=== PATIENT | female | born 1935 | race Caucasian/White ===

== ENCOUNTER 2017-05-31 11:02 | Emergency (ER) | payer MEDICARE, OTHER, SELFPAY ==
[2017-05-31 11:03] VITALS: BP 199/89; PULSE 62; RESP 18; TEMP 36.6; O2SAT 98; BMI 22.3
[2017-05-31 11:14] VITALS: BP 201/107; PULSE 72; RESP 14; TEMP 36.6; O2SAT 99
--- NOTE | 2017-05-31 11:15 | CT_ITS ---
STUDY: CT BRAIN WITHOUT CONTRAST REASON FOR EXAM: Female, 81 years old. Dizziness, hypertension RADIATION DOSAGE (If Supplied By Facility): CTDIvol = ( 44.99 ) mGy, DLP = ( 779.24 ) mGycm TECHNIQUE: Transaxial CT imaging of the brain was performed without administration of intravenous contrast material. Sagittal and coronal reconstructed images are provided and reviewed. Individualized dose optimization techniques were used for this CT. COMPARISON: None. FINDINGS: Vascular calcifications are seen. Normal calvarium. Normal size ventricles and extra-axial spaces for the patient's age. Normal white matter tracts of the cerebral hemispheres. Normal basal ganglia and thalami. Normal brainstem. Normal cerebellum. There is no intracranial hemorrhage. There are no findings of an acute ischemic infarction. Normal visualized paranasal sinuses. CT/Brain/Head without Contrast IMPRESSION: Normal unenhanced CT scan of the brain. Electronically Signed: Vasyl Vargas DO at 12:32 EST Tel , Service support ,
--- NOTE | 2017-05-31 11:15 | EKG12_ITS ---
Test Reason : DIZZINESS Blood Pressure : / mmHG Vent. Rate : 062 BPM Atrial Rate : 062 BPM P-R Int : 174 ms QRS Dur : 124 ms QT Int : 440 ms P-R-T Axes : 067 -32 050 degrees QTc Int : 446 ms Sinus rhythm with Premature atrial complexes Left axis deviation Left bundle branch block Abnormal ECG Confirmed by BRITTANY WATTS, LEIF ([id number]), editorial clerk MARIA C PERDOMO ([id number] on 06/05/2017 3:57:25 PM Referred By: HARRIETT Confirmed By:LEIF SOTO MD
--- NOTE | 2017-05-31 11:15 | RAD_ITS ---
STUDY: X-RAY CHEST REASON FOR EXAM: Female, 81 years old. Shortness of breath. TECHNIQUE: Single AP portable view of the chest. COMPARISON: None. FINDINGS: EKG electrodes are seen. Hyperinflation. No acute abnormality is seen. There is no demonstrated pleural abnormality. There is mild cardiac enlargement. Normal mediastinum and my. Normal visualized pulmonary arteries. There is atherosclerotic calcification of the aortic arch with tortuosity. There is a mild dextroscoliosis of the thoracic spine. Normal visualized ribs, clavicles, and shoulders. There is no demonstrated abnormality of the visualized soft tissue structures of the upper abdomen. RAD/Chest 1 View (Portable) IMPRESSION: Hyperinflation. The lungs are clear. Electronically Signed: Avelino Edwards MD at 12:16 EST Tel [phone], Service support ,
--- NOTE | 2017-05-31 11:19 | ED.DCSUM_ITS ---
- ER Visit Summary Date of Service: 05/31/17 Chief Complaint: Elevated blood pressure History of Present Illness: The patient is a 81 F with elevated blood pressure, dizziness, nausea. She states the symptoms started earlier today. She was seen by a sleep doctor today for insomnia. When her blood pressure was elevated they sent her to the ED for further evaluation. She denies chest pain or shortness of breath. She complains of headache. She states she has had similar headaches in the past. She denies vision changes. She denies vertigo. Physical Examination: Vitals are stable. Patient is afebrile. Alert no acute distress. HEENT exam is unremarkable. Neck is supple. No meningismus Lungs are clear and equal bilaterally. Heart is regular rate and rhythm. Abdomen is soft nontender nondistended. Extremities are unremarkable. Skin is warm and dry. No focal neurologic deficit. NIH 0 Remainder of exam is unremarkable. Emergency Department Course and Treatment: Patient was given hydralazine IV. CBC, chemistries unremarkable other than BUN 27. Orthostatics are negative. EKG is sinus with a left bundle branch block rate is 62. There is no old for comparison but patient states that she does have a known left bundle branch block. Chest x-ray shows hyperinflation. CT brain shows no acute process. She was given Zofran. She is feeling improved and is requesting to go home. Her repeat blood pressure is 161/90. Patient states that she was previously taking blood pressure medication 6 months ago and was taken off by her primary care physician. She has a new primary care physician and has an appointment next week. She is advised to record her blood pressures at home and take this with her to PCP visit. Advised signs and symptoms for which to return to ED. Disposition: Discharge home Impression: Hypertension This note was generated with [employer] dictation software. It may contain incorrect words, spelling, and punctuation that were not noted in review of the chart prior to signing ED Disposition - Plan for ED Patient: Chief Complaint: Dizziness
[2017-05-31 11:20] VITALS: BP 170/88; BP 175/82; BP 185/87; PULSE 64; PULSE 70; PULSE 72
--- NOTE | 2017-05-31 11:20 | NURSING ---
NO OLD EKGS
[2017-05-31] MEDS: Ondansetron 4 MG/2 ML Vial IV (11:41)
[2017-05-31 11:55] LABS: Absolute Lymphocyte Count 2.23 X10^3/ul (0.83-4.51); Absolute Neutrophil Count 5.2 X10^3/uL (2.0-7.7); Basophil# 0.02 X10^3/uL; Basophil% 0.2 % (0-1); Eosinophil# 0.13 X10^3/uL; Eosinophils% 1.6 % (0-5); Hematocrit 35.2 % (37-47); Hemoglobin 11.5 g/dl (12.0-15.0); Lymphocyte # 2.23 X10^3/ul (4.0); Lymphocyte % 27.3 % (19-41); Mean Corp Hgb Conc 32.7 g/gl (32-36); Mean Corpuscular Hgb 31.7 pg (27.0-32.0); Mean Platelet Vol. 10.2 fl (6.2-12.0); Monocyte# 0.62 X10^3/uL; Monocyte% 7.6 % (0-10); Neutrophil # 5.15 X10^3/uL (2.7-7.7); Neutrophil % 63.1 % (47-70); POSITIVE COUNT NO; POSITIVE DIFFERENTIAL NO; POSITIVE MORPHOLOGY NO; Platelet Count 195 K/mm3 (150-450); RBC Distribution Width SD 40.6 fl (35.1-43.9); Red Blood Count 3.63 M/mm3 (4.2-5.4); White Blood Count 8.2 K/mm3 (4.4-11.0)
[2017-05-31 12:00] LABS: Anion Gap 8 (5-15); BUN 27 mg/dL (7-18); BUN/Creat Ratio 28.4 RATIO (10-20); Calcium,Total 9.1 mg/dL (8.5-10.1); Chloride 106 mmol/L (98-107); Creatinine, Serum 0.95 mg/dL (0.55-1.02); EST Glomerular Filtration Rate 60 mL/min (>60); Est Glom Filt Rate - Afr Amer 73 mL/min (>60); Estimated Creatinine Clearance 39.72 ml/min; Glucose 90 mg/dL (70-110); Potassium 4.2 mmol/L (3.5-5.1); Sodium Level 142 mmol/L (136-145)
[2017-05-31 12:05] VITALS: BP 161/90; PULSE 72; RESP 14; O2SAT 99
--- NOTE | 2017-05-31 13:11 | ED.DEP ---
ED Disposition - Plan for ED Patient: Chief Complaint: Dizziness Instructions: ED HTN Established Referrals: Care Physician,No Primary [Primary Care Provider] -
[2017-05-31 13:14] VITALS: BP 155/70; PULSE 68; RESP 14; O2SAT 99
== END 2017-05-31 13:26 | disposition home or self-care (01) ==
PROVIDERS: Emergency Provider Emergency Medicine
DX: I10 Essential (primary) hypertension (principal); Z86.73 Personal history of transient ischemic attack (TIA), and cerebral infarction without residual deficits; I44.7 Left bundle-branch block, unspecified
CPT/HCPCS: 70450; 71045; 80048; 85025; 93005; 99285; A4216; J2405